=== PATIENT | female | born 1970 | race Caucasian/White ===

== ENCOUNTER 2022-11-01 21:34 | Inpatient (IN) | payer OTHER, SELFPAY ==
[2022-11-01] MEDS ORDERED: LORazepam 2 MG/ML SYR.(CARPUJECT) ONE (22:07)
[2022-11-01] MEDS ORDERED: Furosemide 40 MG/4 ML VIAL ONE (22:07)
[2022-11-01 22:15] LABS: #Eosinphils 0.2 thou/uL (0.0-0.7); #Monocytes 0.6 thou/uL (0.11-0.59); #Neutrophils 5.5 thou/uL (1.40-6.50); %Basophils 0.3 % (0.0-1.0); %Eosinophils 1.8 % (0.0-10.0); %Lymphocytes 35.5 % (21.0-51.0); %Neutrophils 56.3 % (42.0-75.0); Hemoglobin 13.1 g/dL (12.0-16.0); Mean Corpuscular HGB CONC 32.8 g/dL (32.0-36.0); Mean Corpuscular Hemoglobin 29.9 pg (27.0-31.0); Mean Corpuscular Volume 91.3 fl (78.0-98.0); Platelet Count 338 10x3/uL (130-400); RBC Distribution Width 12.4 % (11.5-14.5); Red Blood Cell (RBC) Count 4.38 mill/uL (4.20-5.40); White Blood Cell (WBC) Count 9.7 10x3/uL (4.8-10.8)
[2022-11-01 23:29] LABS: Bacteria/HPF None Seen HPF (None Seen); Bilirubin Negative (Negative); Blood, Urine Negative (Negative); CAUTI Indications for Culture Dysuria,urgency,freq; Clarity Clear (Clear); Glucose, Urine (Dipstick) Normal (Negative); Ketone, Urine Negative (Negative); Leukocyte Negative Leu/uL (Negative); Nitrite Negative (Negative); Protein, Urine (Dipstick) Negative (Neg-Trace); RBC/HPF 0-3 HPF (0-3); Specific Gravity, Urine 1.007 (1.002-1.036); Squamous Epithelial 0-3 HPF (0-3); Urobilinogen Normal mg/dL (Less than 2); WBC/HPF 0-3 HPF (0-3)
[2022-11-01 23:40] LABS: Urine Culture Reflex No No
[2022-11-02] MEDS ORDERED: levETIRAcetam 500 MG/5 ML VIAL ONE (00:17)
[2022-11-02 01:29] LABS: ALT (SGPT) 25 U/L (8-55); AST (SGOT) 23 U/L (5-34); Albumin 4.6 g/dL (3.5-5.0); Alkaline Phosphatase 113 U/L (40-110); Anion Gap 15 mmol/L (10-20); BUN (Urea Nitrogen) 11 mg/dL (9.8-20.1); Bilirubin, Total 0.2 mg/dL (0.2-1.2); Calc. Creatinine Clearance 0 mL/min (70-130); Calcium 9.4 mg/dL (7.8-10.44); Carbon Dioxide 25 mmol/L (22-29); Chloride 101 mmol/L (98-107); Estimated GFR 77; Globulin 3.4 g/dL (2.4-3.5); Glucose 118 mg/dL (70-105); Potassium 4.4 mmol/L (3.5-5.1); Sodium 137 mmol/L (136-145)
[2022-11-02] MEDS ORDERED: Acetaminophen 325 MG TAB PO PRN (01:51)
[2022-11-02] MEDS ORDERED: Senokot S 8.6-50 MG TAB PO PRN (01:51)
[2022-11-02] MEDS ORDERED: Calcium Carbonate 500 MG ChewTAB PO PRN (01:51)
[2022-11-02] MEDS ORDERED: Ondansetron ODT 4 MG TAB PO PRN (01:51)
[2022-11-02] MEDS ORDERED: Ipratropium/Albuterol 3 ML NEB NEB PRN (01:55)
[2022-11-02 02:42] LABS: #Monocytes 0.1 thou/uL (0.11-0.59); #Neutrophils 9.4 thou/uL (1.40-6.50); %Basophils 0.1 % (0.0-1.0); %Lymphocytes 8.2 % (21.0-51.0); %Monocytes 0.6 % (0.0-10.0); %Neutrophils 90.7 % (42.0-75.0); Hemoglobin 13.3 g/dL (12.0-16.0); Mean Corpuscular HGB CONC 31.8 g/dL (32.0-36.0); Mean Corpuscular Hemoglobin 29.7 pg (27.0-31.0); Mean Corpuscular Volume 93.3 fl (78.0-98.0); Mean Platelet Volume 9.3 fL (7.4-10.4); Platelet Count 320 10x3/uL (130-400); RBC Distribution Width 12.4 % (11.5-14.5); Red Blood Cell (RBC) Count 4.48 mill/uL (4.20-5.40); White Blood Cell (WBC) Count 10.4 10x3/uL (4.8-10.8)
[2022-11-02 03:04] LABS: Hemoglobin A1c 5.3 % (4.0-6.0)
[2022-11-02 03:27] LABS: Anion Gap 19 mmol/L (10-20); BUN (Urea Nitrogen) 12 mg/dL (9.8-20.1); Calc. Creatinine Clearance 0 mL/min (70-130); Calcium 9.9 mg/dL (7.8-10.44); Carbon Dioxide 21 mmol/L (22-29); Chloride 102 mmol/L (98-107); Estimated GFR 73; Glucose 158 mg/dL (70-105); Potassium 3.9 mmol/L (3.5-5.1); Sodium 138 mmol/L (136-145)
[2022-11-02 04:14] VITALS: BMI 34.0
[2022-11-02] MEDS: HYDROcodone/Acetaminophen 5/325 mg Tablet PO PRN ×3 (06:17→20:38)
[2022-11-02] MEDS: Potassium Citrate 10 MEQ TAB PO SCH ×2 (08:52→20:38)
[2022-11-02] MEDS: Furosemide 20 MG TAB PO SCH ×2 (08:52→20:39)
[2022-11-02] MEDS: FLUoxetine HCl 20 MG CAP PO SCH (08:52)
[2022-11-02] MEDS: levETIRAcetam 500 MG TAB PO SCH ×2 (08:52→20:39)
[2022-11-02] MEDS: Famotidine 20 MG TAB PO SCH ×2 (08:53→20:39)
[2022-11-02] MEDS: Gabapentin 300 MG CAP PO SCH ×2 (08:53→20:38)
[2022-11-02] MEDS: Lisinopril 10 MG TAB PO SCH (08:53)
[2022-11-02] MEDS ORDERED: ALPRAZolam 1 MG TAB PO PRN (10:31)
[2022-11-02] MEDS: Promethazine 25 MG TAB PO PRN (11:24)
[2022-11-02] MEDS: ALPRAZolam 0.5 MG TAB PO PRN ×2 (11:24→20:39)
[2022-11-02] MEDS ORDERED: Clindamycin 150 MG CAP PO SCH (14:00)
[2022-11-02] MEDS: Clindamycin 150 MG CAP PO SCH (22:31)
[2022-11-03] MEDS ORDERED: Doxepin HCl 25 MG CAP PO SCH (01:30)
[2022-11-03] MEDS ORDERED: Lidocaine 4% Patch TD SCH (03:00)
[2022-11-03] MEDS: HYDROcodone/Acetaminophen 5/325 mg Tablet PO PRN ×3 (03:09→21:02)
[2022-11-03] MEDS: Promethazine 25 MG TAB PO PRN ×3 (06:01→20:59)
[2022-11-03] MEDS: Clindamycin 150 MG CAP PO SCH ×3 (06:01→21:00)
[2022-11-03] MEDS: ALPRAZolam 0.5 MG TAB PO PRN ×3 (06:01→23:29)
[2022-11-03] MEDS: Potassium Citrate 10 MEQ TAB PO SCH ×2 (08:02→20:59)
[2022-11-03] MEDS: Famotidine 20 MG TAB PO SCH ×2 (08:02→21:00)
[2022-11-03] MEDS: levETIRAcetam 500 MG TAB PO SCH ×2 (08:02→20:59)
[2022-11-03] MEDS: FLUoxetine HCl 20 MG CAP PO SCH (08:03)
[2022-11-03] MEDS: Gabapentin 300 MG CAP PO SCH ×2 (08:03→20:59)
[2022-11-03] MEDS: Lisinopril 10 MG TAB PO SCH (08:03)
[2022-11-03] MEDS: Furosemide 20 MG TAB PO SCH ×2 (08:03→21:00)
[2022-11-03] MEDS ORDERED: Transdermal Patch Removal TOP SCH (15:00)
[2022-11-03] MEDS: Doxepin HCl 25 MG CAP PO SCH (21:00)
[2022-11-04] MEDS: Clindamycin 150 MG CAP PO SCH ×2 (06:05→13:52)
[2022-11-04] MEDS: FLUoxetine HCl 20 MG CAP PO SCH (09:38)
[2022-11-04] MEDS: Famotidine 20 MG TAB PO SCH ×2 (09:38→20:45)
[2022-11-04] MEDS: Gabapentin 300 MG CAP PO SCH ×2 (09:38→20:46)
[2022-11-04] MEDS: Furosemide 20 MG TAB PO SCH ×2 (09:38→20:47)
[2022-11-04] MEDS: Lisinopril 10 MG TAB PO SCH (09:39)
[2022-11-04] MEDS: levETIRAcetam 500 MG TAB PO SCH ×2 (09:39→20:45)
[2022-11-04] MEDS: HYDROcodone/Acetaminophen 5/325 mg Tablet PO PRN (10:42)
[2022-11-04] MEDS: Potassium Citrate 10 MEQ TAB PO SCH ×2 (10:42→20:54)
[2022-11-04] MEDS: ALPRAZolam 0.5 MG TAB PO PRN (10:42)
[2022-11-04] MEDS ORDERED: QUEtiapine 100 MG TAB PO SCH (13:30)
[2022-11-04] MEDS ORDERED: Ondansetron PF 4 MG/2 ML Vial IVP PRN (16:26)
[2022-11-04] MEDS ORDERED: Sodium Chloride 0.9% 500 ML IV SCH (16:30)
[2022-11-04] MEDS: Doxepin HCl 25 MG CAP PO SCH (20:46)
[2022-11-05] MEDS ORDERED: QUEtiapine 100 MG TAB PO SCH (09:00)
[2022-11-05] MEDS ORDERED: QUEtiapine 25 MG TAB PO SCH (09:00)
[2022-11-05] MEDS: Potassium Citrate 10 MEQ TAB PO SCH (10:54)
[2022-11-05] MEDS: Lisinopril 10 MG TAB PO SCH (10:54)
[2022-11-05] MEDS: Gabapentin 300 MG CAP PO SCH (10:55)
[2022-11-05] MEDS: levETIRAcetam 500 MG TAB PO SCH (10:55)
[2022-11-05] MEDS: Famotidine 20 MG TAB PO SCH (10:56)
[2022-11-05] MEDS: FLUoxetine HCl 20 MG CAP PO SCH (10:56)
[2022-11-05] MEDS: Furosemide 20 MG TAB PO SCH (10:57)
[2022-11-05 12:10] VITALS: BP 140/87; TEMP 98.1
== END 2022-11-05 13:50 | disposition home or self-care (01) | DRG 880 ==
LOC: ERS 21:34 → 2SE 11-02 01:55 → OBSVTOIN 11-03 12:16
PROVIDERS: ADMIT Student in an Organized Health Care Education/Training Program; ATTEND Hospitalist
DX: F44.9 Dissociative and conversion disorder, unspecified (principal); I50.9 Heart failure, unspecified; J44.9 Chronic obstructive pulmonary disease, unspecified; I11.0 Hypertensive heart disease with heart failure; Z88.2 Allergy status to sulfonamides; Z91.041 Radiographic dye allergy status; Z86.73 Personal history of transient ischemic attack (TIA), and cerebral infarction without residual deficits; Z98.890 Other specified postprocedural states; Z82.49 Family history of ischemic heart disease and other diseases of the circulatory system; Z79.51 Long term (current) use of inhaled steroids; Z79.899 Other long term (current) drug therapy; F32.A Depression, unspecified
CPT/HCPCS: 36415; 36416; 70450; 71045; 71046; 80053; 80177; 81001; 83036; 83880; 84145; 84484; 85025; 85379; 93005; 94640; 95816; 95819; 95957; 96374; 96375; G0378; J1940; J1953; J2060; J2405; J7030; J7620; Q0169

== ENCOUNTER 2022-11-18 11:28 | Emergency (ER) | payer OTHER ==
[2022-11-18 12:43] LABS: #Eosinphils 0.1 thou/uL (0.0-0.7); #Monocytes 0.4 thou/uL (0.11-0.59); #Neutrophils 5.7 thou/uL (1.40-6.50); %Basophils 0.3 % (0.0-1.0); %Eosinophils 1.2 % (0.0-10.0); %Lymphocytes 18.9 % (21.0-51.0); %Monocytes 5.4 % (0.0-10.0); %Neutrophils 73.9 % (42.0-75.0); Hematocrit 35.9 % (36.0-47.0); Hemoglobin 11.5 g/dL (12.0-16.0); Mean Corpuscular Hemoglobin 30.3 pg (27.0-31.0); Mean Corpuscular Volume 94.7 fl (78.0-98.0); Mean Platelet Volume 8.9 fL (7.4-10.4); Platelet Count 311 10x3/uL (130-400); Red Blood Cell (RBC) Count 3.79 mill/uL (4.20-5.40); White Blood Cell (WBC) Count 7.7 10x3/uL (4.8-10.8)
[2022-11-18] MEDS ORDERED: levETIRAcetam 500 MG/5 ML VIAL ONE (12:46)
[2022-11-18] MEDS ORDERED: hydrOXYzine 10 MG TAB PO SCH (13:00)
[2022-11-18 13:07] LABS: ALT (SGPT) 16 U/L (8-55); AST (SGOT) 13 U/L (5-34); Albumin 3.9 g/dL (3.5-5.0); Alkaline Phosphatase 82 U/L (40-110); Anion Gap 11 mmol/L (10-20); BUN (Urea Nitrogen) 14 mg/dL (9.8-20.1); Bilirubin, Total Less than 0.2 mg/dL (0.2-1.2); Calc. Creatinine Clearance 0 mL/min (70-130); Calcium 8.9 mg/dL (7.8-10.44); Carbon Dioxide 23 mmol/L (22-29); Chloride 110 mmol/L (98-107); Estimated GFR 91; Globulin 3.2 g/dL (2.4-3.5); Glucose 96 mg/dL (70-105); Potassium 4.2 mmol/L (3.5-5.1); Protein, Total 7.1 g/dL (6.0-8.3); Sodium 140 mmol/L (136-145)
== END 2022-11-18 17:50 | disposition home or self-care (01) ==
LOC: ERS 11:28
DX: G40.909 Epilepsy, unspecified, not intractable, without status epilepticus (principal); J44.9 Chronic obstructive pulmonary disease, unspecified; F17.210 Nicotine dependence, cigarettes, uncomplicated; E11.9 Type 2 diabetes mellitus without complications; I11.0 Hypertensive heart disease with heart failure; I50.9 Heart failure, unspecified; Z79.51 Long term (current) use of inhaled steroids
CPT/HCPCS: 36415; 71045; 80053; 80177; 84443; 84484; 85025; 93005; J1953